=== PATIENT | female | born 2005 | race Hispanic/Latino ===

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

== ENCOUNTER → 2024-04-18 12:50 | Outpatient (REF) | payer OTHER, SELFPAY | LOC: RCS 12:50 | PROVIDERS: ATTENDING PHYSICIAN Internal Medicine Cardiovascular Disease; FAMILY PHYSICIAN Family Medicine | DX: R07.89 Other chest pain (principal) | CPT/HCPCS: 93017 ==

== ENCOUNTER → 2024-04-22 14:03 | Outpatient (REF) | payer OTHER, SELFPAY | LOC: RCS 14:03 | PROVIDERS: ATTENDING PHYSICIAN Internal Medicine Cardiovascular Disease; FAMILY PHYSICIAN Family Medicine | DX: R07.89 Other chest pain (principal); R55 Syncope and collapse; R94.31 Abnormal electrocardiogram [ECG] [EKG]; R00.2 Palpitations | CPT/HCPCS: 93306 ==

== ENCOUNTER 2024-06-18 21:11 | Observation (INO) | payer OTHER, SELFPAY ==
[2024-06-18 18:06] VITALS: BP 127/89
[2024-06-18 18:13] VITALS: BP 127/89
[2024-06-18 18:26] VITALS: BMI 23.6
[2024-06-18] MEDS: NSS 1000 IV (18:31)
[2024-06-18 18:49] LABS: % Basophils 0.2 % (0-2); % Eosinophils 0.2 % (0-6); % Immature Granulocytes 0.3 % (0-0.5); % Lymphocytes 14.8 % (20.5-51.1); % Neutrophils 76.5 % (42.2-75.2); Absolute Lymphocytes 1.7 10^3/uL (1.2-3.4); Absolute Monocytes 0.9 10^3/uL (0.1-0.6); Absolute Neutrophils 8.9 10^3/uL (1.4-6.5); Hematocrit 41.1 % (37.0-47.0); Mean Corp Hgb Conc. 34.1 g/dL (33.0-37.0); Mean Corpuscular Hgb 30.2 pg (27.0-31.0); Mean Corpuscular Volume 88.6 fL (81.0-99.0); Mean Platelet Volume 9.7 fL (7.4-10.4); Nucleated Red Blood Cells % 0 %; Platelet Count 293 10^3/uL (130-400); Red Blood Cell Count 4.64 10^6/uL (4.20-5.40); Red Cell Dist. Width 12.6 % (11.5-14.5); White Blood Cell Count 11.6 10^3/uL (4.8-10.8)
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
[2024-06-18] MEDS: VERSED 2 MG IV (18:52)
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
[2024-06-18 19:01] LABS: HCG, Serum Qualitative Screen Negative
[2024-06-18 19:04] LABS: ALT (SGPT) 29 U/L (0-35); AST (SGOT) 86 U/L (14-36); Acetaminophen < 10 ug/ml (10-30); Albumin 4.9 g/dl (3.5-5.0); Alkaline Phosphatase 72 U/L (38-126); Blood Urea Nitrogen 8 mg/dl (7-17); Calcium 9.9 mg/dl (8.4-10.2); Carbon Dioxide 23 mmol/L (22-30); Chloride 104 mmol/L (98-107); Estimated Creatinine Clearance 74 ml/min; Glucose 75 mg/dl (70-99); Potassium 3.8 mmol/L (3.5-5.1); Salicylate < 1.0 mg/dl (2.0-20.0); Sodium 143 mmol/L (135-145); Total Bilirubin 0.8 mg/dl (0.2-1.3); Total Protein 7.4 g/dl (6.3-8.2); eGFR > 60.00
[2024-06-18 19:07] LABS: Alcohol None Detected
[2024-06-18 19:22] VITALS: BP 121/84
--- NOTE | 2024-06-18 19:42 | PHANOTE ---
MED REC NOTE- PATIENT MEDICATION HAVE NOT BEEN FILLED SINCE 09/30/23 AND PATIENT HAS ECW BUT ONLY SEEN ONCE OR TWICE AT CARDIOLOGY
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
[2024-06-19] VITALS (13 sets, daily range): BP systolic 99–138; BP diastolic 61–87
[2024-06-19] MEDS: VERSED 2 MG IV (00:53)
[2024-06-19] MEDS: TORADOL 10 MG IV (03:54)
[2024-06-19] MEDS: BENADRYL 25 MG PO (03:54)
--- NOTE | 2024-06-19 07:13 | W.PN.HOSP.TC ---
Today's Communication/Plan
-
Please see below
Assessment / Plan
Assessment / Plan
Physical Exam
General: Well Developed, Well Nourished, No Apparent Distress and Comfortable
HEENT: Normocephalic, Moist mucous membranes and Atraumatic
Respiratory: Clear
Cardiac: S1/S2 and Regular Rhythm
GI: Soft, Non Tender, Non Distended and Normal Bowel Sounds
Musculoskeletal: No Cyanosis and No Edema
Skin: Warm
Neuro: AO x 3 and Nonfocal/grossly intact
Psych: Calm
Assessment/Plan
19-year-old female with history of bipolar disorder and a previous suicidal attempt with acetaminophen, presented to the emergency department with agitation after or barricading herself in room and there was a concern for drug overdose with
ibuprofen, Abilify and Effexor. Salicylate and acetaminophen levels were negative. UDS positive for benzodiazepines and marijuana. The history of intentional overdose is unclear. Around the time of admission, patient had 2 episodes of severe
agitation and combativeness requiring Midazolam.
UDS positive for benzodiazepines and marijuana.
Intentional Overdose - Severe agitation but no ecg, lab, or physical exam abnormality
- Given suspected substance overdose, monitor closely in IMU
- Could try Ativan 2 mg IV or IM prn first and if that doesn't work then prn midazolam q 4 hours for agitation
- continuous tele and pulse oximetry
- 1:1
- crisis consulted
-Psychiatry consulted
-[address]: patient has a mandatory hold for 72 hrs. Patient has a one-to-one and can be physically stopped if she tries to leave. A hearing will be set up and she could be released at that point or held for 5 days.
DVT Prophylaxis: SCDs and Lovenox.
Anticipated Discharge: > 48 hours
Subjective/Interval History
-
Date of Service: June 19, 2024
Patient was seen and examined. She denied any chest pain, shortness of breath or any other symptoms.
Objective Data
-
Vital Signs:
Vital Signs
Temp Pulse Resp BP Pulse Ox
97.9 F 80 14 121/84 97
06/18/24 18:06 06/19/24 04:15 06/19/24 04:15 06/18/24 19:22 06/19/24 04:15
[2024-06-19] MEDS: D5/0.45%NACL 1000 IV (08:21)
--- NOTE | 2024-06-19 09:22 | PTCARENOTE ---
Pt's Mother called for an update on pt. RN asked pt if we can update mom. Pt refused staff to give update over the phone but will allow update if mom visits pt in person. Pt also refused to talk to mom herself unless she was in person. Mother
advised and will get a ride to come in a visit pt. PCT on 1:1 with pt. Will continue to monitor.
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
[2024-06-19 11:03] LABS: Amphetamines Negative (Negative); Barbiturates Negative (Negative); Benzodiazepines Positive (Negative); Buprenorphine Negative (Negative); Cocaine Negative (Negative); Marijuana Positive (Negative); Methadone Negative (Negative); Methamphetamines Negative (Negative); Opiates Negative (Negative); Phencyclidine Negative (Negative); Tricyclic Antidepressants Negative (Negative)
[2024-06-19 11:19] LABS: Fentanyl, Urine Negative (Negative)
[2024-06-19 11:26] LABS: HCG, Urine Qualitative Screen Negative
--- NOTE | 2024-06-19 13:04 | EDRN ---
Pt called RN into room. Pt asking to be discharged. Pt states Mom is here now and heading back to [facility]. When she leaves pt has no ride or place to live. Spoke to Hospitalist and Psych. Pt has a 302 which was filed by mom and upheld but Tele
Psych and our Psych. Pt has a mandatory 72 hour hold. Pt advised with mom and step dad in room. Charge nurse in room to explain to pt about above. Pt immediately starts yelling and cursing at staff. Pt was able to calm herself down without
intervention from staff. Pt was anxious and irritable for about 5-10 minutes. RN offered Versed. Pt refused. Verbal report given to Helga in IMU. 1:1 in room with pt and will go to IMU with pt and stay with her. Will continue to monitor.
--- NOTE | 2024-06-19 20:00 | PTCARENOTE ---
resumed care of pt with mother and Stepfather at bedside. Pt extremely agitated at this time. Mom at bedside asking about pt discharge and when pt can go home with her back to [place]. Mom stating all the family dynamics in play. Mother and pt
instructed on [address] and need for pt to stay until 302 hearing. Instructed mother pt cannot leave for [place] tonight. Expressed emotional support to both pt and mother. 1:[address] Pt AAOx3. HR in the 90's in
NSR at rest, HR in the 120's with activity. POX 99% on RA. Pt ambulatory in room to bathroom when needed, close monitoring maintained. Left AC int infusing D5 1/2 NSS @60ml/hr as ordered. Mom at bedside assisting pt with shower cap and managing
hair. All questions answered at this time. Will continue to monitor.
[2024-06-20] VITALS: BP 110/97
[2024-06-20] MEDS: D5/0.45%NACL 1000 IV (00:50)
[2024-06-20 05:08] LABS: Blood Urea Nitrogen 4 mg/dl (7-17); Carbon Dioxide 24 mmol/L (22-30); Chloride 105 mmol/L (98-107); Estimated Creatinine Clearance 124 ml/min; Glucose 106 mg/dl (70-99); Potassium 3.5 mmol/L (3.5-5.1); Sodium 140 mmol/L (135-145); eGFR > 60.00
--- NOTE | 2024-06-20 05:10 | PTCARENOTE ---
Pt awake throughout the night. Pt with defensive, argumentative tone, but cooperative with care. 1:1 observation at bedside. Safe environment maintained.
[2024-06-20 05:18] LABS: Creatine Phosphokinase 5051 U/L (30-135)
[2024-06-20 06:20] VITALS: BP 117/78
--- NOTE | 2024-06-20 07:49 | W.PN.HOSP.TC ---
Today's Communication/Plan
-
Severely agitated -- 2 mg IM Ativan given this morning
Transfer to ICU as per nurse who said patient needs to be in ICU due to leather restraints
Might need Precedex and/or Versed
Assessment / Plan
Assessment / Plan
Physical Exam
General: Severely agitated
HEENT: Normocephalic, Moist mucous membranes and Atraumatic
Respiratory: Clear
Cardiac: S1/S2 and Regular Rhythm. Tachycardic.
GI: Soft, Non Tender, Non Distended and Normal Bowel Sounds
Musculoskeletal: No Cyanosis and No Edema
Skin: Warm
Neuro: AO x 3 and Nonfocal/grossly intact
Psych: Calm
Assessment/Plan
19-year-old female with history of bipolar disorder and a previous suicidal attempt with acetaminophen, presented to the emergency department with agitation after or barricading herself in room and there was a concern for drug overdose with
ibuprofen, Abilify and Effexor. Salicylate and acetaminophen levels were negative. UDS positive for benzodiazepines and marijuana. The history of intentional overdose is unclear. Around the time of admission, patient had 2 episodes of severe
agitation and combativeness requiring Midazolam.
UDS positive for benzodiazepines and marijuana.
Intentional Overdose - Severe agitation but no ecg, lab, or physical exam abnormality
- Given suspected substance overdose, monitor closely in IMU
- Ativan 2 mg IV or IM prn first and if that doesn't work then prn midazolam q 4 hours for agitation
- Ativan 2 mg IM given on the morning of June 20, 2024
- continuous tele and pulse oximetry
- 1:1
- crisis consulted
-Psychiatry consulted
-[address]: patient has a mandatory hold for 72 hrs. Patient has a one-to-one and can be physically stopped if she tries to leave. A hearing will be set up and she could be released at that point or held for 5 days.
-Check CK due to restraints/agitation
-Per charge nurse patient needs to be transferred to ICU due to leather restraints
DVT Prophylaxis: SCDs and Lovenox.
Anticipated Discharge: > 48 hours
Subjective/Interval History
-
Date of Service: June 20, 2024
Patient was seen and examined. She was very agitated this morning needing restraints and security, multiple nurses had to help calm her down.
Objective Data
-
Labs:
Laboratory Results
06/20/24
04:26
Sodium 140
Potassium 3.5
Chloride 105
Carbon Dioxide 24
BUN 4 L
Creatinine 0.6
Glucose 106 H
Calcium 9.0
Vital Signs:
Vital Signs
Temp Pulse Resp BP Pulse Ox
98.1 F 75 10 110/97 97
06/20/24 07:13 06/20/24 06:00 06/20/24 06:00 06/20/24 00:00 06/20/24 06:00
[2024-06-20] MEDS: ATIVAN 2 MG IM (07:51)
--- NOTE | 2024-06-20 08:15 | PTCARENOTE ---
Received pt via bed in Neoprene restraints. She is screaming out profanities, fast talking, uncooperative, resisting our placing her on the monitor and and performing an assessment. She has her fists clenched and pulling her foot away preventing us
from placing a pulse oximetry on her due to her rapid breathing and elevated HR. I attempted to orient her to the ICU and the plan of care, however she just kept yelling over me using profanities and stating 'You are all going to burn a slow
in hell'. She was informed of the plan of care, and that once she was able to cooperate she could have visitors. 1:1 observation maintained. Safe environment maintained. Will continue to monitor.
--- NOTE | 2024-06-20 08:40 | PTCARENOTE ---
Addendum entered by Nedra Delacruz RN 06/20/24 08:59:
Pt ripping clothes off and baring chest during excalation, privacy and coverage provided by staff and pt continually bares chest. Pt provided with coverage when Dr. Montiel enters room for assessment.
Original Note:
Received morning report and upon walking rounds entered room and pt is yelling, argumentative and kicking at staff. Her heart rate sinus rhythm in 120s at rest but with activity with it escalating to 180s with agitation. Pt is increased agitated and
upset with 1:1 due to being asked to not record or take pictures during hospital stay. Security and nursing service crew supervisor asked to come to pt room 3341, due to agitation and pt is a 302 situation. pt became increasingly agitated, violent and trying to
bite , kick, scratch and scream and staff. Multiple verbal attempts to calm pt, deescalate and explain treatment plan to pt. No calming, rationalizing or deescalation techniques effective. Pt ripping monitor wires off. Pt given 2mg IM Ativan and
placed in 4 point soft restraints by RNs. Dr. Montiel arrived during escalation and pt orders to transfer to ICU. Pt wants to talk to her mother, I offer to call mother with update and Pt does not want me to call her Mother, as she reports that
the 'Mother' is on her way to the hospital. Pt states she does not want me to speak with Mom. ICU staff at bedside, pt being to appear less agitated and less kicking and screaming. Transferred to room 3360, Mom has arrived and Dr. Montiel speaking
her now.
[2024-06-20 09:46] VITALS: BP 132/74
[2024-06-20 10:00] VITALS: BP 141/80
[2024-06-20 10:15] VITALS: BP 130/77
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
[2024-06-20 10:30] VITALS: BP 150/104
--- NOTE | 2024-06-20 10:35 | PTCARENOTE ---
Reviewing the plan of care with prychiatry and medical team. Currently her parents are at the bedside. 1:1 remains at the bedside.
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
--- NOTE | 2024-06-20 11:37 | PTCARENOTE ---
Pt is calm in the room with her parents and 1:1. She is ambulatory in the room. Safe environment maintained.
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
--- NOTE | 2024-06-20 12:15 | PTCARENOTE ---
Discharge instruction read to the pt with her mother present in the room. Neither had any further questions regarding her discharge or her medications. Left AC#20g protective catheter removed along with her child monitor. She reported that she
is missing a irrigation tax assessor collector for her cell phone, however, I did check her other room and there was no irrigation tax assessor collector found. She was advised to call security's lost and found. She is aware we are not responsible for personal handheld devices or chargers. They
verbalized their understanding.
== END 2024-06-20 12:40 | disposition home or self-care (01) ==
LOC: ICU 21:11
PROVIDERS: ADMITTING PHYSICIAN Internal Medicine; ATTENDING PHYSICIAN Hospitalist; CONSULT PHYSICIAN Internal Medicine; CONSULT PHYSICIAN Psychiatry & Neurology Psychiatry; EMERGENCY PHYSICIAN Emergency Medicine; PRIMARYCARE PHYSICIAN Family Medicine
DX: F33.1 Major depressive disorder, recurrent, moderate (principal); R45.1 Restlessness and agitation; F43.10 Post-traumatic stress disorder, unspecified; F12.90 Cannabis use, unspecified, uncomplicated; F13.90 Sedative, hypnotic, or anxiolytic use, unspecified, uncomplicated; I49.8 Other specified cardiac arrhythmias; G47.00 Insomnia, unspecified; Z81.1 Family history of alcohol abuse and dependence; Z91.410 Personal history of adult physical and sexual abuse; Z62.810 Personal history of physical and sexual abuse in childhood; Z91.51 Personal history of suicidal behavior; Z78.1 Physical restraint status
CPT/HCPCS: 80048; 80053; 80143; 80179; 80306; 80307; 81025; 82077; 82550; 84703; 85025; 93005; 96361; 96365; 96366; 96375; 99291; G0378